=== PATIENT | male | born 1940 | race Caucasian/White ===

== ENCOUNTER → 2016-10-11 | Outpatient (CLI) | payer MEDICARE | LOC: LAB.O 14:16 | PROVIDERS: ATTEND Urology | DX: R97.20 Elevated prostate specific antigen [PSA] (principal) ==

== ENCOUNTER → 2017-02-07 | Outpatient (CLI) | payer MEDICARE | END | disposition home or self-care (01) | LOC: LAB.O 15:05 | PROVIDERS: ATTEND Urology | DX: R31.9 Hematuria, unspecified (principal) ==

== ENCOUNTER → 2017-02-12 | Outpatient (CLI) | payer MEDICARE ==
--- NOTE | 2017-02-12 14:19 | CT ---
EXAM DESCRIPTION: Abdomen/Pelvis w/wo Contrast CLINICAL HISTORY: 76 years,Male,CHRONIC PROSTATITIS COMPARISON: None TECHNIQUE: Multiple axial tomographic images were obtained of the abdomen and pelvis with and without IV contrast without oral contrast. Then reconstructed in sagittal and coronal planes. This exam was performed using radiation doses that are As Low As Reasonably Achievable (ALARA). FINDINGS: The kidneys are unremarkable The adrenal glands demonstrate a small low-density mass less than centimeter size in lower right adrenal gland indicating an adenoma.. The spleen is unremarkable. The liver is unremarkable. The pancrease is unremarkable. The gallbladder is unremarkable. The included bowel demonstrate numerous diverticula sigmoid and descending colon but no acute disease. The appendix is unremarkable. There is no free air, free fluid, masses, or significant adenopathy. Large lipoma in the left gluteal muscles measuring 9 x 4.2 cm. Prostate is enlarged to 5.9 AP by 5.5W centimeters by eight centers in height including a protruding 2.4 cm into the floor the bladder. And mild thickening of the urinary bladder wall. Moderate consultation of the distal aorta and iliac vessels. IMPRESSION: Prostate hypertrophy with a large protrusion into the floor the urinary bladder. And mild thickening of the bladder wall which can be due to outlet obstruction. Large left gluteal muscle lipoma. Multiple diverticula sigmoid and descending colon but no acute disease Electronically signed by: Hunter Nova MD 02/12/2017 2:19 PM CDT
== END | disposition home or self-care (01) ==
LOC: CT 09:21
PROVIDERS: ATTEND Urology
DX: N41.1 Chronic prostatitis (principal)

== ENCOUNTER → 2017-02-13 | Outpatient (CLI) | payer MEDICARE | END | disposition home or self-care (01) | LOC: GMAJ 10:46 | PROVIDERS: ATTEND Family Medicine | DX: E03.9 Hypothyroidism, unspecified (principal); R97.20 Elevated prostate specific antigen [PSA] ==

== ENCOUNTER → 2017-06-06 | Outpatient (CLI) | payer MEDICARE | END | disposition home or self-care (01) | LOC: LAB.O 13:58 | PROVIDERS: ATTEND Urology | DX: R31.9 Hematuria, unspecified (principal) ==

== ENCOUNTER → 2017-10-04 | Outpatient (CLI) | payer MEDICARE | END | disposition home or self-care (01) | LOC: GMAJ 10:49 | PROVIDERS: ATTEND Family Medicine | DX: N40.1 Benign prostatic hyperplasia with lower urinary tract symptoms (principal); I10 Essential (primary) hypertension ==

== ENCOUNTER → 2018-06-13 | Outpatient (CLI) | payer MEDICARE ==
--- NOTE | 2018-06-13 21:30 | US ---
EXAM DESCRIPTION: Renal Arteries. Ultrasound Doppler. CLINICAL HISTORY: Essential HYPERTENSION COMPARISON: None. TECHNIQUE: Transcutaneous scanning: Two-dimensional modes. Doppler systolic and diastolic measurements of the abdominal aorta, renal arteries, intra renal arteries, and renal veins. FINDINGS: PSV (cm/sec): Aorta: 51.5 Right renal artery: 73.4 Left renal artery: 78.9 EDV (cm/sec): Right renal artery: 13.7 Left renal artery: 10.4 Renal veins: Visualized IVC: Visualized Intrarenal RI's: Superior/Segmental Right: 0.96 Left: 1.0. Middle/Interlobular Right: 0.76 Left: 0.84. Inferior/Arcuate Right: 0.76 Left: 0.7 Renal Aortic Ratio: Right RAR = RRA PSV/Aortic PSV = 51.5 /73.4= 0.8. Left RAR = LRA PSV/Aortic PSV = 51.5/78.9 = 1.1. End Diastolic Ratio: Right EDR = RRA EDV/RRA PSV = 13.7/73.4 = 0.19. Left EDR = LRA EDV/LRA PSV = 10.4/78.9= 0.13. Other: None. IMPRESSION: 1. Doppler evaluation of the bilateral renal aortic ratios indicates no evidence of renal artery stenosis. (Less than 3.5) 2. 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 EDR less than 0.25.) Electronically signed by: Fritz Curry MD 06/13/2018 9:28 PM CDT
== END ==
LOC: US 08:00
PROVIDERS: ATTEND Family Medicine
DX: I10 Essential (primary) hypertension (principal)

== ENCOUNTER → 2018-12-04 | Outpatient (CLI) | payer MEDICARE | LOC: LAB.O 14:37 | PROVIDERS: ATTEND Urology | DX: R97.20 Elevated prostate specific antigen [PSA] (principal) ==

== ENCOUNTER → 2020-10-25 | Outpatient (CLI) | payer MEDICARE | LOC: GMAJ 14:37 | PROVIDERS: ATTEND Family Medicine | DX: N40.1 Benign prostatic hyperplasia with lower urinary tract symptoms (principal); I10 Essential (primary) hypertension; E78.00 Pure hypercholesterolemia, unspecified ==